=== PATIENT | female | born 1940 | race Caucasian/White ===

== ENCOUNTER 2017-02-13 21:31 | Emergency (ER) | payer MEDICARE ==
--- NOTE | ~2017-02-13 | CT2 ---
[facility] A Service of [facility] & [facility] [place] RADIOLOGY TEXT RESULTS PATIENT: TAMARA GLASS LOCATION: SED : 42 UNIT #: [id number] AGE: [address]: Steve Martines MD SEX: F ORDER DR: [id number] [address] [address] [id number] E MR#: [id number] Acc #: [id number] NAME: TAMARA GLASS : 1940 SEX: F STUDY DATE/TIME: 02/13/2017 23:58 UNIT: SED ROOM: STUDY DESCRIPTION: CT Abd and Pelv W Cont Attending Physician: Steve Martines M.D. Ordering Physician: Steve Martines M.D. Primary Care Physician: Mariaa Roque M.D. MEDICAL IMAGING REPORT This report is preliminary unless electronic signature is present. EXAM CT abdomen and pelvis with contrast DATE 02/13/2017 HISTORY 76-year-old female low abdominal pain, constipation for 12 hours prior to arrival. COMPARISON None PROCEDURE 5 mm axial images from the lung bases to the lesser trochanters after intravenous and enteric contrast administration. Sagittal and coronal reformatted images were obtained. This CT exam was performed with one or more of the following radiation dose reduction techniques: automatic exposure control, adjustment of mA and/or kV according to patient size, and iterative reconstruction. FINDINGS Mild emphysematous changes of the lung bases with minimal atelectasis in the lingula. No basilar consolidation. Small esophageal hiatal hernia. Pacemaker leads in place. Coronary artery calcifications. Granulomatous changes in the liver and spleen. The gallbladder, pancreas, right adrenal are normal. Left adrenal nodule measures 2.8 cm (Hounsfield units 28.96), not confirmatory for an adenoma on this postcontrast exam. The kidneys are within normal limits. The appendix is thought to be normal and partially filled with enteric contrast. There is no evidence of high-grade large or small bowel obstruction. No large colonic stool burden is identified. There is questionable mild wall thickening of the ascending colon and hepatic flexure of the colon which could represent [facility] A Service of [facility] & [facility] [place] RADIOLOGY TEXT RESULTS PATIENT: TAMARA GLASS LOCATION: SED : 42 UNIT #: [id number] AGE: [address]: Steve Martines MD SEX: F ORDER DR: changes of mild colitis in the appropriate clinical context. There is a small umbilical hernia containing only fat. Pelvis findings: Urinary bladder, uterus and rectum are normal. Prominent varicosities are seen within bilateral inguinal regions. Grade 1 anterolisthesis L4 upon L5 thought to be the result of advanced facet arthropathy at that level. Multilevel degenerative changes in the spine. No acute appearing osseous abnormalities are evident. IMPRESSION 1. Questionable mild wall thickening of the ascending colon and hepatic flexure of the colon may represent mild colitis. There is no evidence of high-grade large or small bowel obstruction or significant retained colonic stool burden. 2. The structure that is thought to represent the appendix appears normal. 3. Small esophageal hiatal hernia and small umbilical hernia containing fat. 4. Grade 1 anterolisthesis L4 upon L5 secondary to advanced facet arthropathy. 5. Left adrenal nodule measuring 2.8 cm is not confirmatory for an adenoma. Correlation with previous imaging study is recommended if available. Alternatively, consider correlation to CT or MRI abdomen without and with contrast adrenal mass protocol on a nonemergent basis. 6. Mild cardiomegaly with coronary artery calcifications. Please correlate with cardiac history. Dictated by... Sally Garcia M.D. THIS IS AN ELECTRONICALLY VERIFIED REPORT Sally Garcia M.D. at 02/15/2017 12:11 AM [facility]/trudi TD: 02/14/2017 12:06 JOB #: [id number] MEDICAL IMAGING REPORT
[2017-02-13] MEDS ORDERED: POTASSIUM CHLO10 ME2 (21:35)
[2017-02-13] MEDS ORDERED: ELIQUIS5 MG (21:36)
[2017-02-13] MEDS ORDERED: LASIX (21:36)
[2017-02-13] MEDS ORDERED: ASPIRIN81 MG (21:36)
[2017-02-13] MEDS ORDERED: SIMVASTATIN10 MG (21:36)
[2017-02-13] MEDS ORDERED: DILTIAZEM 24HR120 MG (21:37)
[2017-02-13 22:28] LABS: BASOPHIL# 0.1 X10e3 (0-0.3); BASOPHIL% 0.5 % (0-2.5); EOSINOPHIL% 0.1 % (0.0-7.0); HEMATOCRIT 43.8 % (35.0-45.0); HEMOGLOBIN 14.5 gm/dL (12.0-16.0); LYMPHOCYTE# 1.3 X10e3 (1.0-3.5); LYMPHOCYTE% 10.7 % (17.0-45.0); MEAN CORPUSCULAR HEMOGLOBIN 30.2 PG (28-34); MEAN CORPUSCULAR HGB CONC 33.2 g/dL (30-36); MONOCYTE# 0.9 X10e3 (0-1.0); MONOCYTE% 7.6 % (3.0-12.0); NEUTROPHIL# 9.9 X10e3 (1.5-7.1); NEUTROPHIL% 81.1 % (40-75); PLATELET COUNT 193 X10e3 (140-420); RED BLOOD COUNT 4.82 X10e (3.90-5.30); RED CELL DISTRIBUTION WIDTH 13.3 % (11.0-15.5); WHITE BLOOD COUNT 12.1 X10e3 (4.0-10.5)
[2017-02-13 22:31] LABS: DIFF IND NO
[2017-02-13 22:37] LABS: BLOOD UREA NITROGEN 13 mg/dL (9-23); BUN/CREATININE RATIO 21.66; CALCIUM SERUM 9.8 mg/dL (8.4-10.2); CARBON DIOXIDE 25 mmol/L (22-31); CHLORIDE 93 mmol/L (100-111); CREATININE SERUM 0.6 mg/dL (0.6-1.4); GLOM FILT RATE Estimated ABOVE60 mL/min (>60); GLUCOSE FASTING 116 mg/dL (70-110); POTASSIUM 3.8 mmol/L (3.5-5.1); SODIUM 128 mmol/L (135-145)
[2017-02-14 01:26] LABS: URINE SOURCE CLEAN CATCH
[2017-02-14 01:28] LABS: URINE APPEARANCE CLEAR; URINE BILIRUBIN NEG (NEG); URINE BLOOD 2+ (NEG); URINE COLOR YELLOW; URINE GLUCOSE NEG (NORM); URINE KETONE NEG (NEG); URINE LEUKOCYTE ESTERASE NEG (NEG); URINE NITRATE NEG (NEG); URINE PH 5.5 (5-8); URINE PROTEIN 2+ (NEG); URINE SPECIFIC GRAVITY <=1.005 (1.003-1.035); URINE UROBILINOGEN 0.2 MG/DL (NORM)
[2017-02-14 01:29] LABS: MICRO INDICATED? YES
[2017-02-14 01:34] LABS: CULTURE INDICATED? NO; URINE BACTERIA NEG (NEG); URINE MUCUS PRESENT; URINE SQUAMOUS EPITHELIAL CELL OCCAS /[HPF]; URINE TRANSITIONAL EPI CELLS FEW /[HPF]
== END 2017-02-14 01:49 | disposition home or self-care (01) ==
LOC: SED 21:31
PROVIDERS: Emergency Medicine
DX: K52.9 Noninfective gastroenteritis and colitis, unspecified (principal); E87.1 Hypo-osmolality and hyponatremia; I48.91 Unspecified atrial fibrillation; E78.5 Hyperlipidemia, unspecified; Z88.8 Allergy status to other drugs, medicaments and biological substances
CPT/HCPCS: 36415; 74177; 80048; 81003; 85025; 99284; Q9967